=== PATIENT | female | born 1965 | race Caucasian/White ===

== ENCOUNTER 2024-06-17 17:00 | Outpatient (RCR) | payer BC, SELFPAY | END 2024-06-17 23:59 | disposition home or self-care (01) | LOC: PT 17:00 | PROVIDERS: Visit Provider Student in an Organized Health Care Education/Training Program | DX: M54.40 Lumbago with sciatica, unspecified side (principal); S33.6XXA Sprain of sacroiliac joint, initial encounter | CPT/HCPCS: 97110; 97163; 97530 ==

== ENCOUNTER 2024-07-10 15:00 | Outpatient (RCR) | payer BC, SELFPAY | END 2024-07-15 16:05 | disposition home or self-care (01) | LOC: PT 15:00 | PROVIDERS: Visit Provider Student in an Organized Health Care Education/Training Program | DX: M54.40 Lumbago with sciatica, unspecified side (principal); S33.6XXA Sprain of sacroiliac joint, initial encounter | CPT/HCPCS: 97110; 97140; 97530 ==

== ENCOUNTER 2025-06-15 09:00 | Outpatient (RCR) | payer BC, SELFPAY | END 2025-06-15 23:59 | disposition home or self-care (01) | LOC: PT.CARL 09:00 | PROVIDERS: Visit Provider Physical Medicine & Rehabilitation | DX: M25.551 Pain in right hip (principal); M24.551 Contracture, right hip; G89.29 Other chronic pain | CPT/HCPCS: 97110; 97112; 97140; 97162 ==